=== PATIENT | male | born 1970 | race Caucasian/White ===

== ENCOUNTER 2017-03-03 07:12 | Emergency (ER) | payer SELFPAY ==
[2017-03-03] MEDS ORDERED: NORMAL SALINE 1000 ML 1,000 ML IV ONE ×2 (08:01)
[2017-03-03] MEDS ORDERED: MECLIZINE HCL 25 MG TABLET PO ONE (08:02)
[2017-03-03 08:47] LABS: ABSOLUTE BASOPHILS # (AUTO) 0.1 10^3/uL (0.0-0.2); ABSOLUTE EOSINOPHILS # (AUTO) 0.3 10^3/uL (0.0-0.6); ABSOLUTE LYMPHOCYTES (AUTO) 2.5 10^3/uL (0.5-4.7); ABSOLUTE MONOCYTES (AUTO) 0.6 10^3/uL (0.1-1.4); ABSOLUTE NEUT (AUTO) 5.4 10^3/uL (1.7-8.2); EOSINOPHILS % (AUTO) 3.1 % (0-6); HEMATOCRIT 48.7 % (37.9-51.0); HEMOGLOBIN 16.3 g/dL (13.5-17.0); HGB HCT DIFFERENCE 0.2; LYMPHOCYTES % (AUTO) 28.7 % (13-45); MEAN CORPUSCULAR HEMOGLOBIN 31.1 pg (27.0-33.4); MEAN CORPUSCULAR HGB CONC 33.4 g/dL (32.0-36.0); MEAN CORPUSCULAR VOLUME 93 fl (80-97); MONOCYTES % (AUTO) 6.4 % (3-13); RED BLOOD COUNT 5.22 10^6/uL (4.35-5.55); RED CELL DISTRIBUTION WIDTH 13.6 % (11.5-14.0); SEGMENTED NEUTROPHILS % (AUTO) 60.8 % (42-78); WHITE BLOOD COUNT 8.8 10^3/uL (4.0-10.5)
--- NOTE | 2017-03-03 08:57 | RADIOLOGY REPORT (SQ) ---
EXAM DESCRIPTION: CT HEAD WITHOUT COMPLETED DATE/TIME: 03/03/2017 8:48 am REASON FOR STUDY: dizziness COMPARISON: None. TECHNIQUE: Axial images acquired through the brain without intravenous contrast. Images reviewed wi th bone, brain and subdural windows. Images stored on PACS. All CT scanners at this facility use dose modulation, iterative reconstruction, and/or weight based d osing when appropriate to reduce radiation dose to as low as reasonably achievable (ALARA). [facility]: Dose Right [facility]: CareDose [facility]: Dose Right [facility]: Teradose 4D [facility]: [place] RADIATION DOSE: Up-to-date CT equipment and radiation dose reduction techniques were employed. CTDIv ol: 61.3 mGy. DLP: 1163 mGy-cm. mGy. LIMITATIONS: None. FINDINGS: VENTRICLES: Normal size and contour. CEREBRUM: No masses. No hemorrhage. No midline shift. Normal malone/white matter differentiation. N o evidence for acute infarction. CEREBELLUM: No masses. No hemorrhage. No alteration of density. No evidence for acute infarction. EXTRAAXIAL SPACES: No fluid collections. No masses. ORBITS AND GLOBE: No intra- or extraconal masses. Normal contour of globe without masses. CALVARIUM: No fracture. PARANASAL SINUSES: No fluid or mucosal thickening. SOFT TISSUES: No mass or hematoma. OTHER: No other significant finding. IMPRESSION: NORMAL BRAIN CT WITHOUT CONTRAST. TECHNICAL DOCUMENTATION: JOB ID: [id number] Quality ID # [id number]: Final reports with documentation of one or more dose reduction techniques (e.g., Au tomated exposure control, adjustment of the mA and/or kV according to patient size, use of iterative reconstruction technique) 2010 [employer]- All Rights Reserved
[2017-03-03 09:02] LABS: ALANINE AMINOTRANSFERASE 37 U/L (21-72); ALBUMIN 4.2 g/dL (3.5-5.0); ALKALINE PHOSPHATASE 81 U/L (38-126); ANION GAP 9 (5-19); ASPARTATE AMINO TRANSFERASE 23 U/L (17-59); BILIRUBIN,DIRECT 0.4 mg/dL (0.0-0.4); BILIRUBIN,TOTAL 0.8 mg/dL (0.2-1.3); BLOOD UREA NITROGEN 15 mg/dL (7-20); CALCIUM 9.2 mg/dL (8.4-10.2); CARBON DIOXIDE 26 mmol/L (22-30); CHLORIDE 104 mmol/L (98-107); CREATININE RESULT 0.82 mg/dL (0.52-1.25); GLUCOSE 207 mg/dL (75-110); LIPASE 69.1 U/L (23-300); MAGNESIUM 2.2 mg/dL (1.6-2.3); POTASSIUM 4.6 mmol/L (3.6-5.0); SODIUM 139.4 mmol/L (137-145); TOTAL PROTEIN 7.2 g/dL (6.3-8.2)
[2017-03-03 10:08] LABS: APPEARANCE,URINE CLEAR; BILIRUBIN,URINE NEGATIVE (NEGATIVE); GLUCOSE, URINE 150 mg/dL (NEGATIVE); KETONES,URINE NEGATIVE (NEGATIVE); LEUKOCYTE ESTERASE,URINE NEGATIVE (NEGATIVE); NITRITE,URINE NEGATIVE (NEGATIVE); PROTEIN,URINE NEGATIVE (NEGATIVE); URINE SPECIFIC GRAVITY 1.008; UROBILINOGEN,URINE NEGATIVE mg/dL (<2.0)
--- NOTE | 2017-03-03 10:24 | ER Document Report ---
ED General - General Chief Complaint: Dizziness Stated Complaint: DIZZINESS Time Seen by Provider: 03/03/17 08:00 TRAVEL OUTSIDE OF THE [place] IN LAST 30 DAYS: No - HPI Patient complains to provider of: Dizziness Notes: Patient coming in with a history of hypertension diabetes noncompliant with any medications not taking any lisinopril or metformin since August headache dizziness ongoing for the last 5 days patient dizziness is worsened when turning his head states when he was driving to the ER and to work today looking in the side view mirrors because of these need to occur. Denies any head trauma. Denies any chest pain abdominal pain denies any other fevers chills nausea vomiting - Related Data Allergies/Adverse Reactions: neomycin Allergy (Verified 03/03/17 07:23) Past Medical History - Social History Smoking Status: Unknown if Ever Smoked Family History: Reviewed & Not Pertinent Patient has suicidal ideation: No Patient has homicidal ideation: No - Past Medical History Cardiac Medical History: Reports: Hx Hypertension Renal/ Medical History: Denies: Hx Peritoneal Dialysis Review of Systems - Review of Systems Constitutional: Other - Dizziness EENT: No symptoms reported Cardiovascular: No symptoms reported Respiratory: No symptoms reported Gastrointestinal: No symptoms reported Genitourinary: No symptoms reported Male Genitourinary: No symptoms reported Musculoskeletal: No symptoms reported Skin: No symptoms reported Hematologic/Lymphatic: No symptoms reported Neurological/Psychological: No symptoms reported -: Yes All other systems reviewed and negative Physical Exam - Vital signs Vitals: Temp Pulse Resp BP Pulse Ox 98.0 F 82 18 170/97 H 99 03/03/17 07:24 03/03/17 07:24 03/03/17 07:24 03/03/17 07:24 03/03/17 07:24 Interpretation: Normal - General General appearance: Appears well, Alert - HEENT Head: Normocephalic, Atraumatic Eyes: Normal Pupils: PERRL - Respiratory Respiratory status: No respiratory distress Chest status: Nontender Breath sounds: Normal Chest palpation: Normal - Cardiovascular Rhythm: Regular Heart sounds: Normal auscultation Murmur: No - Abdominal Inspection: Normal Distension: No distension Bowel sounds: Normal Tenderness: Nontender Organomegaly: No organomegaly - Back Back: Normal, Nontender - Extremities General upper extremity: Normal inspection, Nontender, Normal color, Normal ROM , Normal temperature General lower extremity: Normal inspection, Nontender, Normal color, Normal ROM , Normal temperature, Normal weight bearing. No: Alfredo's sign - Neurological Neuro grossly intact: Yes Cognition: Normal Orientation: AAOx4 Michelle Coma Scale Eye Opening: Spontaneous Michelle Coma Scale Verbal: Oriented Michelle Coma Scale Motor: Obeys Commands Michelle Coma Scale Total: 15 Speech: Normal Motor strength normal: LUE, RUE, LLE, RLE Sensory: Normal - Psychological Associated symptoms: Normal affect, Normal mood - Skin Skin Temperature: Warm Skin Moisture: Dry Skin Color: Normal Course - Re-evaluation Re-evalutation: 03/03/17 13:48 Started patient on metformin lisinopril. No clinical signs of the patient dizziness. Patient will be treated with Valium Blanca maneuver instructions were given to the patient. Patient is understanding will be discharged home - Vital Signs Vital signs: Temp Pulse Resp BP Pulse Ox 97.6 F 59 L 17 173/85 H 98 03/03/17 10:30 03/03/17 10:30 03/03/17 10:30 03/03/17 10:30 03/03/17 10:30 - Laboratory Result Diagrams: 03/03/17 08:18 03/03/17 08:18 Laboratory results interpreted by me: 03/03/17 03/03/17 08:18 09:53 Glucose 207 H Urine Glucose (UA) 150 H Discharge - Discharge Clinical Impression: Dizziness Hypertension Qualifiers: Hypertension type: essential hypertension Qualified Code(s): I10 - Essential ( primary) hypertension Condition: Good Disposition: HOME, SELF-CARE Instructions: Dizziness ([facility]), Vertigo ([facility]) Additional Instructions: Your laboratory studies and CAT scan did not reveal any significant pathology. Your blood sugar is elevated. We will restart you on your blood pressure medications and diabetic medication. Your dizziness is more likely related to vertigo which can be an due to inner ear dysfunction. Most the time treatment will involve medication like Valium and also a procedure called the Blanca maneuver. Please refer to the handout to perform the Blanca maneuver at home. He may have to do this 2 or 3 times and may have to do multiple times a day. Would recommend also drinking plenty water to stay hydrated follow-up with your primary care physician Prescriptions: Diazepam [Valium 2 mg Tablet] 2 mg PO Q6HP PRN #30 tablet PRN Reason: Lisinopril 20 mg PO DAILY #30 tablet Metformin HCl 500 mg PO BID #60 tablet
[2017-03-03 10:41] VITALS: BP 173/85
--- NOTE | 2017-03-03 13:11 | EKG REPORT ---
SEVERITY:- NORMAL ECG - SINUS RHYTHM : Confirmed by: Nikolai Moss MD 03-Mar-2017 13:10:53
== END 2017-03-03 10:42 | disposition home or self-care (01) ==
LOC: ER 07:12
DX: I10 Essential (primary) hypertension (principal); T46.4X6A Underdosing of angiotensin-converting-enzyme inhibitors, initial encounter; E11.9 Type 2 diabetes mellitus without complications; T38.3X6A Underdosing of insulin and oral hypoglycemic [antidiabetic] drugs, initial encounter; Z91.14 Patient's other noncompliance with medication regimen; R42 Dizziness and giddiness; R51 Headache; Z88.1 Allergy status to other antibiotic agents
CPT/HCPCS: 93005; 99284; 36415; 83690; 83735; 85025; 80053; 81001; 70450; 93010; J7030

== ENCOUNTER 2017-07-26 12:07 | Emergency (ER) | payer SELFPAY ==
[2017-07-26] MEDS ORDERED: ONDANSETRON HCL INJ/PF 4 MG/2 ML SDV IV ONE (13:55)
[2017-07-26] MEDS ORDERED: MORPHINE SULFATE 10 MG/ML INJ IV ONE ×2 (13:55→17:13)
--- NOTE | 2017-07-26 13:56 | ER Document Report ---
ED Medical Screen (RME) - General Chief Complaint: Facial Swelling Stated Complaint: FACE SWELLING Time Seen by Provider: 07/26/17 13:49 Mode of Arrival: Ambulatory Information source: Patient Notes: Complaint of facial swelling sudden onset this morning . Now severe left sided facial pain and eye pain. Smokes and has IDDM and HTN. Bad teeth but no tooth ache today. TRAVEL OUTSIDE OF THE [place] IN LAST 30 DAYS: No - HPI Onset: This morning - Related Data Allergies/Adverse Reactions: neomycin Allergy (Verified 07/26/17 12:08) Past Medical History - Past Medical History Cardiac Medical History: Reports: Hx Hypertension Renal/ Medical History: Denies: Hx Peritoneal Dialysis Physical Exam - Vital signs Vitals: Temp Pulse Resp BP Pulse Ox 98.5 F 94 18 188/104 H 99 07/26/17 12:12 07/26/17 12:12 07/26/17 12:12 07/26/17 12:12 07/26/17 12:12 - HEENT Head: Normocephalic, Ecchymosis, Tenderness, Other - Right side facial swelling with concern for eye involvement. Very tender to palpation. Conjunctiva: Injected Extraocular movements intact: Yes Course - Vital Signs Vital signs: Temp Pulse Resp BP Pulse Ox 98.5 F 94 18 188/104 H 99 07/26/17 12:12 07/26/17 12:12 07/26/17 12:12 07/26/17 12:12 07/26/17 12:12 - Transfer of Care Notes: 07/26/17 13:58 I have seen and evaluated patient inorder to start process and get patient started. Another Provider will handle furtgher evaluation and disposition Doctor's Discharge - Discharge Clinical Impression: Dental abscess
[2017-07-26 15:02] LABS: ABSOLUTE BASOPHILS # (AUTO) 0.1 10^3/uL (0.0-0.2); ABSOLUTE EOSINOPHILS # (AUTO) 0.1 10^3/uL (0.0-0.6); ABSOLUTE LYMPHOCYTES (AUTO) 2.2 10^3/uL (0.5-4.7); ABSOLUTE NEUT (AUTO) 10.3 10^3/uL (1.7-8.2); BASOPHILS % (AUTO) 0.7 % (0-2); EOSINOPHILS % (AUTO) 0.9 % (0-6); HEMATOCRIT 46.7 % (37.9-51.0); HEMOGLOBIN 16.1 g/dL (13.5-17.0); HGB HCT DIFFERENCE 1.6; LYMPHOCYTES % (AUTO) 15.9 % (13-45); MEAN CORPUSCULAR HEMOGLOBIN 32.3 pg (27.0-33.4); MEAN CORPUSCULAR HGB CONC 34.4 g/dL (32.0-36.0); MEAN CORPUSCULAR VOLUME 94 fl (80-97); MONOCYTES % (AUTO) 7.1 % (3-13); RED BLOOD COUNT 4.97 10^6/uL (4.35-5.55); RED CELL DISTRIBUTION WIDTH 12.9 % (11.5-14.0); SEGMENTED NEUTROPHILS % (AUTO) 75.4 % (42-78); WHITE BLOOD COUNT 13.7 10^3/uL (4.0-10.5)
[2017-07-26] MEDS ORDERED: AMOXICILLIN TR/POT CLAVULANATE 500-125 MG TAB PO ONE (15:07)
[2017-07-26] MEDS ORDERED: HYDROCODONE/ACETAMINOPHEN 5-325 MG TABLET PO ONE (15:08)
--- NOTE | 2017-07-26 15:10 | ER Document Report ---
ED ENT - General Chief Complaint: Facial Swelling Stated Complaint: FACE SWELLING Time Seen by Provider: 07/26/17 13:49 Mode of Arrival: Ambulatory Information source: Patient Notes: 46-year-old male presents to ED for complaint of facial swelling was sudden onset this morning with severe that his facial swelling up to the eyes with pressure on his eye. He states he smokes and has a history of diabetes and high blood pressure. He has a bad tooth in the right upper jaw but he has no tenderness when this is palpated. He states he does not think it has anything to do with the tooth. He states he did have a upper respiratory infection before this started. TRAVEL OUTSIDE OF THE [place] IN LAST 30 DAYS: No - HPI Patient complains to provider of: Nose problem Onset: This morning Onset/Duration: Gradual, Worse Quality of pain: Achy Severity: Moderate Context: Recent Illness Location of pain: Face, Sinus Associated symptoms: Face swelling, Headache, Sinus pain, Other - Pressure to eye on the right Similar symptoms previously: No Recently seen / treated by doctor: No - Related Data Allergies/Adverse Reactions: neomycin Allergy (Verified 07/26/17 12:08) Past Medical History - General Information source: Patient - Social History Smoking Status: Current Every Day Smoker Cigarette use (# per day): Yes - 1/2 ppd Chew tobacco use (# tins/day): No Smoking Education Provided: Yes - less than 1 min Frequency of alcohol use: Heavy - 1-2 daily Drug Abuse: None Occupation: [employer] Lives with: Family Family History: DM, Hyperlipidemia, Hypertension, Malignancy. denies: Arthritis , CAD, COPD, CVA, Thyroid Disfunction Patient has suicidal ideation: No Patient has homicidal ideation: No - Past Medical History Cardiac Medical History: Reports: Hx Hypertension Pulmonary Medical History: Reports: None EENT Medical History: Reports: None Endocrine Medical History: Reports: Hx Diabetes Mellitus Type 2 Renal/ Medical History: Reports: Hx Kidney Stones Malignancy Medical History: Reports None GI Medical History: Reports: None Musculoskeltal Medical History: Reports Hx Arthritis, Reports Hx Musculoskeletal Deformity, Reports Hx Musculoskeletal Trauma Skin Medical History: Reports None Psychiatric Medical History: Reports: None Traumatic Medical History: Reports: Hx Fractures Infectious Medical History: Reports: None Past Surgical History: Reports: Hx Inguinal Hernia, Hx Kidney (Renal Surgery) - 7 lithotripsies 1 laser surgery 6 stents to the kidneys for stones - Immunizations Immunizations up to date: Yes Review of Systems - Review of Systems Constitutional: Recent illness EENT: Sinus pressure, Mouth swelling - Upper lip swollen bottom lip not swollen , Dental problem - Cavity upper jaw but no tenderness to this area, Other - Right facial swelling up to just below the eyes states he has pressure behind eyes upper lip swollen. denies: Throat pain, Difficulty swallowing, Throat swelling, Mouth pain Cardiovascular: No symptoms reported Respiratory: No symptoms reported Gastrointestinal: No symptoms reported Genitourinary: No symptoms reported Male Genitourinary: No symptoms reported Musculoskeletal: No symptoms reported Skin: No symptoms reported Hematologic/Lymphatic: No symptoms reported Neurological/Psychological: No symptoms reported -: Yes All other systems reviewed and negative Physical Exam - Vital signs Vitals: Temp Pulse Resp BP Pulse Ox 98.5 F 94 18 188/104 H 99 07/26/17 12:12 07/26/17 12:12 07/26/17 12:12 07/26/17 12:12 07/26/17 12:12 Interpretation: Normal - General General appearance: Appears well, Alert - HEENT Head: Normocephalic, Atraumatic Eyes: Normal, Other - Pressure behind the eye. No: Pale conjunctiva, Periorbital ecchymosis, Periorbital edema, Scleral icterus Conjunctiva: Normal Cornea: Normal Extraocular movements intact: Yes Eyelashes: Normal Pupils: PERRL Ears: Normal External canal: Normal Tympanic membrane: Normal Sinus: Frontal, Mastoid, Maxillary, Swelling, Tenderness. No: Redness Nasal: Purulent discharge, Swelling Mouth/Lips: Caries - Tooth #7 very decayed put most of the tooth call, Other - Right upper lip swelling Mucous membranes: Normal Pharynx: Normal Neck: Normal - Respiratory Respiratory status: No respiratory distress Chest status: Nontender Breath sounds: Normal Chest palpation: Normal - Cardiovascular Rhythm: Regular Heart sounds: Normal auscultation Murmur: No - Abdominal Inspection: Normal Distension: No distension Bowel sounds: Normal Tenderness: Nontender Organomegaly: No organomegaly - Back Back: Normal, Nontender - Extremities General upper extremity: Normal inspection, Nontender, Normal color, Normal ROM , Normal temperature General lower extremity: Normal inspection, Nontender, Normal color, Normal ROM , Normal temperature, Normal weight bearing. No: Alfredo's sign - Neurological Neuro grossly intact: Yes Cognition: Normal Orientation: AAOx4 Mcintyre Coma Scale Eye Opening: Spontaneous Mcintyre Coma Scale Verbal: Oriented Michelle Coma Scale Motor: Obeys Commands Mcintyre Coma Scale Total: 15 Speech: Normal Motor strength normal: LUE, RUE, LLE, RLE Sensory: Normal - Psychological Associated symptoms: Normal affect, Normal mood - Skin Skin Temperature: Warm Skin Moisture: Dry Skin Color: Normal Course - Re-evaluation Re-evalutation: 07/26/17 17:[address] Yadav facial pain and swelling with pressure behind the eye. Consulted Dr Yadav again due to the increase in pain and swelling to his face. We will add another morphine injection as well as clindamycin IV. - Vital Signs Vital signs: Temp Pulse Resp BP Pulse Ox 100.2 F 97 18 164/95 H 94 07/26/17 18:51 07/26/17 18:51 07/26/17 12:12 07/26/17 18:51 07/26/17 18:51 - Laboratory Result Diagrams: 07/26/17 14:50 07/26/17 14:50 Laboratory results interpreted by me: 07/26/17 07/26/17 14:50 14:50 WBC 13.7 H Absolute Neutrophils 10.3 H Glucose 152 H Direct Bilirubin 0.5 H Total Protein 8.5 H - Diagnostic Test Radiology reviewed: Image reviewed, Reports reviewed Discharge - Discharge Clinical Impression: Right maxillary sinusitis Condition: Stable Disposition: HOME, SELF-CARE Instructions: Family Physicians / Practices Additional Instructions: Sinusitis You have sinusitis, an infection of the sinus cavities of the face. The sinuses are air-filled chambers which open into the inside of the nose. Bacteria and pus fill a sinus, causing pain, drainage, and fever. Sinusitis is treated with antibiotics. Often, expectorants (to thin the sinus mucous) or decongestants (to reduce swelling) are prescribed as well. Healing requires seven to 10 days. Avoid chemical fumes, pollens, dusts, and smoke (especially cigarette smoke ). Keep the air humidified in your bedroom and work area and take plenty of liquids by mouth. This condition can be serious if the infection spreads. If your symptoms worsen, or if you develop severe headache, high fever, stiff neck, or a rash, you must call the doctor or return for re-evaluation. Clindamycin You have been given a prescription for the antibiotic clindamycin. It is often prescribed for infections in the mouth, such as dental infections or abscesses, and for skin infections due to MRSA. It's important that you take all the medication, unless instructed otherwise by your physician. Failure to complete the entire course can result in relapse of your condition. Common side effects of antibiotics include nausea, intestinal cramping, or diarrhea. Women may develop vaginal yeast infections, and babies can get yeast (thrush) in the mouth following the use of antibiotics. Contact your physician if you develop significant side effects from this medication. Allergy to this antibiotic can result in hives, wheezing, faintness, or itching. If symptoms of allergy occur, stop the medication and call the doctor. Oral Narcotic Medication You have been given a prescription for pain control. This medication is a narcotic. It's best taken with food, as nausea can result if taken on an empty stomach. Don't operate machinery or drive within six hours of taking this medication. Do not combine this medicine with alcohol, or with any medication which can cause sedation (such as cold tablets or sleeping pills) unless you get permission from the physician. Narcotics tend to cause constipation. If possible, drink plenty of fluids and eat a diet high in fiber and fruits. You prescription for clindamycin has been called into [facility] on [address]. This prescription will be ready for you. FOLLOW-UP CARE: If you have been referred to a physician for follow-up care, call the physician s office for an appointment as you were instructed or within the next two days. If you experience worsening or a significant change in your symptoms, notify the physician immediately or return to the Emergency Department at any time for re-evaluation. As you stated that you do not have insurance to follow-up please return to the emergency room in 48 hours to ensure that her symptoms are improving. Return sooner if you have any increase in swelling any difficulty swallowing or any difficulty breathing. Prescriptions: Hydrocodone/Acetaminophen [[place] 5-325 mg Tablet] 1 tab PO Q6HP PRN #14 tablet PRN Reason: Forms: Elevated Blood Pressure, Smoking Cessation Education, Return to Work
[2017-07-26] MEDS ORDERED: LISINOPRIL 10 MG TABLET PO ONE (15:15)
[2017-07-26 15:32] LABS: ALANINE AMINOTRANSFERASE 34 U/L (21-72); ALBUMIN 4.8 g/dL (3.5-5.0); ALKALINE PHOSPHATASE 101 U/L (38-126); ANION GAP 12 (5-19); ASPARTATE AMINO TRANSFERASE 20 U/L (17-59); BILIRUBIN,DIRECT 0.5 mg/dL (0.0-0.4); BILIRUBIN,TOTAL 0.9 mg/dL (0.2-1.3); BLOOD UREA NITROGEN 9 mg/dL (7-20); CALCIUM 9.6 mg/dL (8.4-10.2); CARBON DIOXIDE 30 mmol/L (22-30); CHLORIDE 99 mmol/L (98-107); CREATININE RESULT 0.84 mg/dL (0.52-1.25); GLUCOSE 152 mg/dL (75-110); POTASSIUM 3.8 mmol/L (3.6-5.0); SODIUM 140.7 mmol/L (137-145); TOTAL PROTEIN 8.5 g/dL (6.3-8.2)
--- NOTE | 2017-07-26 16:26 | RADIOLOGY REPORT (SQ) ---
EXAM DESCRIPTION: CT FACIAL AREA WITH COMPLETED DATE/TIME: 07/26/2017 4:05 pm REASON FOR STUDY: right facial swelling / Need IV contrast only COMPARISON: None. TECHNIQUE: Post contrast images through the facial bones and orbits windowed for bone and soft tissu e. Additional coronal and sagittal reconstructed images reviewed. All images stored on PACS. All CT scanners at this facility use dose modulation, iterative reconstruction, and/or weight based d osing when appropriate to reduce radiation dose to as low as reasonably achievable (ALARA). [facility]: Dose Right [facility]: CareDose [facility]: Dose Right [facility]: Teradose 4D [facility]: [place] CONTRAST TYPE AND DOSE: 55 mL Isovue 370- low osmolar. RENAL FUNCTION: None required. The patient is less than 50 years old. RADIATION DOSE: . LIMITATIONS: None. FINDINGS: FACIAL BONES: No fracture or bone lesion. ORBITS: Intact. No fracture. Symmetric intact globes and retroorbital soft tissues. PARANASAL SINUSES: Mild mucosal thickening is identified in the right maxillary antra and a few of th e ethmoidal air cells. No nasal polyps. Maxillary sinus outlets are patent. SOFT TISSUES: There is superficial soft tissue swelling in the right maxillary region with edematous or inflammatory changes in the subcutaneous fat and some thickening of the adjacent fascial planes. No discrete fluid collection is identified. INFERIOR BRAIN: Limited view. No acute findings. OTHER: There are some prominent submandibular lymph nodes on the right. IMPRESSION: Findings most consistent with a cellulitis involving the superficial soft tissues in the right maxillary region as noted above. No discrete fluid collection is identified. Other findings as noted above TECHNICAL DOCUMENTATION: JOB ID: [id number] Quality ID # [id number]: Final reports with documentation of one or more dose reduction techniques (e.g., Au tomated exposure control, adjustment of the mA and/or kV according to patient size, use of iterative reconstruction technique) 2010 [email or web address]- All Rights Reserved
[2017-07-26] MEDS ORDERED: CLINDAMYCIN 900 MG/D5W RTU 50 ML IV ONE (17:13)
[2017-07-26 18:52] VITALS: BP 164/95
== END 2017-07-26 19:18 | disposition home or self-care (01) ==
LOC: ER 12:07
DX: J32.0 Chronic maxillary sinusitis (principal); R22.0 Localized swelling, mass and lump, head; F17.210 Nicotine dependence, cigarettes, uncomplicated; I10 Essential (primary) hypertension; E11.9 Type 2 diabetes mellitus without complications; Z88.3 Allergy status to other anti-infective agents; Z87.442 Personal history of urinary calculi
CPT/HCPCS: 96376; 99284; 96374; 96375; 36415; 85025; 80053; 70487; J2270; J2405

== ENCOUNTER 2017-09-16 07:06 | Emergency (ER) | payer SELFPAY ==
--- NOTE | 2017-09-16 08:23 | ER Document Report ---
ED GI/ - General Chief Complaint: Possible Kidney Stone Stated Complaint: FLANK PAIN Time Seen by Provider: 09/16/17 08:20 Mode of Arrival: Ambulatory Information source: Patient Notes: . TRAVEL OUTSIDE OF THE [place] IN LAST 30 DAYS: No - Related Data Allergies/Adverse Reactions: neomycin Allergy (Verified 07/26/17 12:08) Past Medical History - Social History Family History: DM, Hyperlipidemia, Hypertension, Malignancy. denies: Arthritis , CAD, COPD, CVA, Thyroid Disfunction - Past Medical History Cardiac Medical History: Reports: Hx Hypertension Endocrine Medical History: Reports: Hx Diabetes Mellitus Type 2 Renal/ Medical History: Reports: Hx Kidney Stones. Denies: Hx Peritoneal Dialysis Musculoskeltal Medical History: Reports Hx Arthritis, Reports Hx Musculoskeletal Deformity, Reports Hx Musculoskeletal Trauma Traumatic Medical History: Reports: Hx Fractures Past Surgical History: Reports: Hx Inguinal Hernia, Hx Kidney (Renal Surgery) - 7 lithotripsies 1 laser surgery 6 stents to the kidneys for stones - Immunizations Immunizations up to date: Yes Physical Exam - Vital signs Vitals: Temp Pulse Resp BP Pulse Ox 98.3 F 88 18 163/90 H 99 09/16/17 07:30 09/16/17 07:30 09/16/17 07:30 09/16/17 07:30 09/16/17 07:30 Course - Vital Signs Vital signs: Temp Pulse Resp BP Pulse Ox 97.8 F 74 16 172/108 H 100 09/16/17 12:31 09/16/17 12:31 09/16/17 12:31 09/16/17 12:31 09/16/17 12:31 - Laboratory Result Diagrams: 09/16/17 11:10 09/16/17 11:10 Laboratory results interpreted by me: 09/16/17 09/16/17 10:00 11:10 Glucose 150 H Urine Glucose (UA) 50 H Discharge - Discharge Clinical Impression: Flank pain, Nephrolithiasis Condition: Stable Disposition: HOME, SELF-CARE Instructions: Anti-Inflammatory Medication ([facility]), Flank Pain ([facility]), Oral Narcotic Medication ([facility]), Toradol Injection ([facility]) Additional Instructions: REST, AVOID PAINFUL ACTIVITY. TAKE IBUPROFEN OR NAPROXEN TO REDUCE INFLAMMATION. YOU MAY TAKE NORCO IF NEEDED FOR PAIN CONTROL. FOLLOW UP IF NOT IMPROVED IN 2-3 DAYS. Prescriptions: Hydrocodone/Acetaminophen [[place] 5-325 mg Tablet] 1 tab PO Q4HP PRN #14 tablet PRN Reason: For Pain
[2017-09-16] MEDS ORDERED: IBUPROFEN 800 MG TABLET PO ONE (08:26)
[2017-09-16] MEDS ORDERED: ACETAMINOPHEN 325 MG TABLET PO ONE (08:26)
--- NOTE | 2017-09-16 09:05 | RADIOLOGY REPORT (SQ) ---
EXAM DESCRIPTION: CT LTD RENAL STONE PROTOCOL ON COMPLETED DATE/TIME: 09/16/2017 8:42 am REASON FOR STUDY: right flank pain, hx stones COMPARISON: None. TECHNIQUE: CT scan of the abdomen and pelvis performed without intravenous or oral contrast. Images reviewed with lung, soft tissue, and bone windows. Reconstructed coronal and sagittal MPR images revi ewed. All images stored on PACS. All CT scanners at this facility use dose modulation, iterative reconstruction, and/or weight based d osing when appropriate to reduce radiation dose to as low as reasonably achievable (ALARA). [facility]: Dose Right [facility]: CareDose [facility]: Dose Right [facility]: Teradose 4D [facility]: Smart RealityMine RADIATION DOSE: CT Rad equipment meets quality standard of care and radiation dose reduction techniq ues were employed. CTDIvol: 18.8 mGy. DLP: 1091 mGy-cm.mGy. LIMITATIONS: None. FINDINGS: LOWER CHEST: No significant findings. No nodules or infiltrates. NON-CONTRASTED LIVER, SPLEEN, ADRENALS: Evaluation limited by lack of IV contrast. Calcified granulo ma in the spleen. No identified significant masses. PANCREAS: No masses. No peripancreatic inflammatory changes. GALLBLADDER: No identified stones by CT criteria. No inflammatory changes to suggest cholecystitis. RIGHT KIDNEY AND URETER: No suspicious masses. Assessment limited by lack of IV contrast. No signif icant calcifications. No hydronephrosis or hydroureter. LEFT KIDNEY AND URETER: No suspicious masses. Assessment limited by lack of IV contrast. 2 mm calyc eal calculus. No hydronephrosis or hydroureter. AORTA AND RETROPERITONEUM: No aneurysm. No retroperitoneal masses or adenopathy. BOWEL AND PERITONEAL CAVITY: No obvious masses or inflammatory changes. No free fluid. APPENDIX: Normal. PELVIS, BLADDER, AND ABDOMINAL WALL:Left inguinal hernia containing fat. No involvement of bowel. N o abnormal masses. No free fluid. Bladder normal. BONES: No significant findings. OTHER: No other significant finding. IMPRESSION: 1. 2 MM NONOBSTRUCTING CALYCEAL CALCULUS IN THE LEFT KIDNEY. NO URETERAL CALCULI OR OBSTRUCTION. 2. LEFT INGUINAL HERNIA CONTAINING FAT. NO INVOLVEMENT OF BOWEL. 3. NO OTHER SIGNIFICANT OR ACUTE PROCESS IN THE ABDOMEN OR PELVIS. COMMENT: Quality ID # [id number]: Final reports with documentation of one or more dose reduction techniques (e.g., Automated exposure control, adjustment of the mA and/or kV according to patient size, use of iterative reconstruction technique) TECHNICAL DOCUMENTATION: JOB ID: [id number] [employer]- All Rights Reserved
[2017-09-16 10:44] LABS: APPEARANCE,URINE CLEAR; BILIRUBIN,URINE NEGATIVE (NEGATIVE); COLOR,URINE STRAW; GLUCOSE, URINE 50 mg/dL (NEGATIVE); KETONES,URINE NEGATIVE (NEGATIVE); LEUKOCYTE ESTERASE,URINE NEGATIVE (NEGATIVE); NITRITE,URINE NEGATIVE (NEGATIVE); PROTEIN,URINE NEGATIVE (NEGATIVE); URINE SPECIFIC GRAVITY 1.005; UROBILINOGEN,URINE NEGATIVE mg/dL (<2.0)
[2017-09-16 11:19] LABS: ABSOLUTE EOSINOPHILS # (AUTO) 0.5 10^3/uL (0.0-0.6); ABSOLUTE LYMPHOCYTES (AUTO) 2.9 10^3/uL (0.5-4.7); ABSOLUTE MONOCYTES (AUTO) 0.5 10^3/uL (0.1-1.4); ABSOLUTE NEUT (AUTO) 5.3 10^3/uL (1.7-8.2); BASOPHILS % (AUTO) 0.1 % (0-2); EOSINOPHILS % (AUTO) 4.9 % (0-6); HEMATOCRIT 45.7 % (37.9-51.0); HEMOGLOBIN 15.9 g/dL (13.5-17.0); MEAN CORPUSCULAR HEMOGLOBIN 32.6 pg (27.0-33.4); MEAN CORPUSCULAR HGB CONC 34.9 g/dL (32.0-36.0); MEAN CORPUSCULAR VOLUME 94 fl (80-97); MONOCYTES % (AUTO) 5.2 % (3-13); PLATELET COUNT 225 10^3/uL (150-450); RED BLOOD COUNT 4.88 10^6/uL (4.35-5.55); RED CELL DISTRIBUTION WIDTH 12.8 % (11.5-14.0); SEGMENTED NEUTROPHILS % (AUTO) 57.8 % (42-78); TOTAL CELLS COUNTED % (AUTO) 100 %; WHITE BLOOD COUNT 9.2 10^3/uL (4.0-10.5)
--- NOTE | 2017-09-16 11:28 | ER Document Report ---
ED GI/ - General Chief Complaint: Possible Kidney Stone Stated Complaint: FLANK PAIN Time Seen by Provider: 09/16/17 08:20 Mode of Arrival: Ambulatory Information source: Patient TRAVEL OUTSIDE OF THE [place] IN LAST 30 DAYS: No - HPI Patient complains to provider of: Flank pain - RIGHT Onset: Other - 2 WEEKS Timing/Duration: Gradual Quality of pain: Dull Severity at maximum: Severe Severity in ED: Moderate Context: denies: Bad food, Lifting, Out of the country travel, Recent trauma Location: Right flank Associated symptoms: Nausea. denies: Chills, Dysuria, Fever, Hematuria, Vomiting Exacerbated by: Movement Relieved by: Remaining still Similar symptoms previously: Yes - SIMILAR, W/ "KIDNEY STONES" Recently seen / treated by doctor: No - Related Data Allergies/Adverse Reactions: neomycin Allergy (Verified 07/26/17 12:08) Past Medical History - General Information source: Patient - Social History Smoking Status: Current Every Day Smoker Chew tobacco use (# tins/day): No Frequency of alcohol use: None Drug Abuse: None Family History: DM, Hyperlipidemia, Hypertension, Malignancy. denies: Arthritis , CAD, COPD, CVA, Thyroid Disfunction Patient has suicidal ideation: No Patient has homicidal ideation: No - Past Medical History Cardiac Medical History: Reports: Hx Hypertension Pulmonary Medical History: Reports: None EENT Medical History: Reports: None Neurological Medical History: Reports: None Endocrine Medical History: Reports: Hx Diabetes Mellitus Type 2 Renal/ Medical History: Reports: Hx Kidney Stones. Denies: Hx Peritoneal Dialysis Malignancy Medical History: Reports None GI Medical History: Reports: None Musculoskeltal Medical History: Reports Hx Arthritis, Reports Hx Musculoskeletal Deformity, Reports Hx Musculoskeletal Trauma Psychiatric Medical History: Reports: None Traumatic Medical History: Reports: Hx Fractures Past Surgical History: Reports: Hx Inguinal Hernia, Hx Kidney (Renal Surgery) - 7 lithotripsies 1 laser surgery 6 stents to the kidneys for stones - Immunizations Immunizations up to date: Yes Review of Systems - Review of Systems Constitutional: No symptoms reported. denies: Chills, Fever EENT: No symptoms reported Cardiovascular: No symptoms reported Respiratory: No symptoms reported Gastrointestinal: No symptoms reported Genitourinary: See HPI Male Genitourinary: No symptoms reported Musculoskeletal: See HPI Skin: No symptoms reported Neurological/Psychological: No symptoms reported Physical Exam - Vital signs Vitals: Temp Pulse Resp BP Pulse Ox 98.3 F 88 18 163/90 H 99 09/16/17 07:30 09/16/17 07:30 09/16/17 07:30 09/16/17 07:30 09/16/17 07:30 Interpretation: Hypertensive. No: Tachycardic, Tachypneic, Febrile - General General appearance: Appears well, Alert In distress: None - HEENT Head: Normocephalic Eyes: Normal Conjunctiva: Normal Ears: Normal Nasal: Normal Mouth/Lips: Normal Mucous membranes: Normal - Respiratory Respiratory status: No respiratory distress - Cardiovascular Rhythm: Regular - Abdominal Inspection: Obese - Back Back: Normal, Nontender - NO SUPERFICIAL TENDERNESS, CVA tenderness - TO PERCUSSION, RIGHT - Extremities General upper extremity: Normal inspection General lower extremity: Normal inspection - Neurological Neuro grossly intact: Yes Cognition: Normal Orientation: AAOx4 - Psychological Associated symptoms: Normal affect, Normal mood - Skin Skin Temperature: Warm Skin Moisture: Dry Skin Color: Normal Skin Turgor: Elastic Course - Vital Signs Vital signs: Temp Pulse Resp BP Pulse Ox 98.3 F 88 18 163/90 H 99 09/16/17 07:30 09/16/17 07:30 09/16/17 07:30 09/16/17 07:30 09/16/17 07:30 - Laboratory Result Diagrams: 09/16/17 11:10 09/16/17 11:10 Laboratory results interpreted by me: 09/16/17 09/16/17 10:00 11:10 Glucose 150 H Urine Glucose (UA) 50 H Discharge - Discharge Clinical Impression: Flank pain, Nephrolithiasis Condition: Stable Disposition: HOME, SELF-CARE Instructions: Flank Pain ([facility]), Toradol Injection ([facility]), Oral Narcotic Medication ([facility]), Anti-Inflammatory Medication ([facility]) Additional Instructions: REST, AVOID PAINFUL ACTIVITY. TAKE IBUPROFEN OR NAPROXEN TO REDUCE INFLAMMATION. YOU MAY TAKE NORCO IF NEEDED FOR PAIN CONTROL. FOLLOW UP IF NOT IMPROVED IN 2-3 DAYS. Prescriptions: Hydrocodone/Acetaminophen [[place] 5-325 mg Tablet] 1 tab PO Q4HP PRN #14 tablet PRN Reason: For Pain
[2017-09-16] MEDS ORDERED: KETOROLAC TROMETHAMINE INJ/PF 30 MG/1 ML SDV IV ONE (11:32)
[2017-09-16 11:40] LABS: ALANINE AMINOTRANSFERASE 52 U/L (21-72); ALBUMIN 4.5 g/dL (3.5-5.0); ALKALINE PHOSPHATASE 80 U/L (38-126); ANION GAP 8 (5-19); ASPARTATE AMINO TRANSFERASE 28 U/L (17-59); BILIRUBIN,DIRECT 0.3 mg/dL (0.0-0.4); BILIRUBIN,TOTAL 0.6 mg/dL (0.2-1.3); BLOOD UREA NITROGEN 12 mg/dL (7-20); CALCIUM 9.7 mg/dL (8.4-10.2); CARBON DIOXIDE 28 mmol/L (22-30); CHLORIDE 105 mmol/L (98-107); GLUCOSE 150 mg/dL (75-110); POTASSIUM 4.8 mmol/L (3.6-5.0); SODIUM 141.2 mmol/L (137-145); TOTAL PROTEIN 7.4 g/dL (6.3-8.2)
[2017-09-16 12:32] VITALS: BP 172/108
--- NOTE | 2017-09-17 06:53 | ER Document Report ---
ED Medical Screen (RME) - General Chief Complaint: Possible Kidney Stone Stated Complaint: FLANK PAIN Time Seen by Provider: 09/16/17 08:20 Mode of Arrival: Ambulatory Notes: 47 yo htn, hx multiple stones (lithotrypsy and stents), hernia surgery, insulin DM (no rx for 1 month) male c/o RUQ similar to where he normally has stone pain that radiates into right low back for 2 weeks. 4/5. Worse if on right side and try to roll over or get up, it then feels like something ripping in right flank. Occaional will have some middle right abdominal pain but not all the way into groin. No fever or chlils. No dysuria, hesitancy or hematuria. Nausea and vomit yesterday. No diarrhea. No sciatica. allergic neomycin. No PCP TRAVEL OUTSIDE OF THE [place] IN LAST 30 DAYS: No - Related Data Allergies/Adverse Reactions: neomycin Allergy (Verified 07/26/17 12:08) Past Medical History - Social History Chew tobacco use (# tins/day): No Frequency of alcohol use: None Drug Abuse: None - Past Medical History Cardiac Medical History: Reports: Hx Hypertension Pulmonary Medical History: Reports: None EENT Medical History: Reports: None Neurological Medical History: Reports: None Endocrine Medical History: Reports: Hx Diabetes Mellitus Type 2 Renal/ Medical History: Reports: Hx Kidney Stones. Denies: Hx Peritoneal Dialysis Malignancy Medical History: Reports None GI Medical History: Reports: None Musculoskeltal Medical History: Reports Hx Arthritis, Reports Hx Musculoskeletal Deformity, Reports Hx Musculoskeletal Trauma Psychiatric Medical History: Reports: None Traumatic Medical History: Reports: Hx Fractures Past Surgical History: Reports: Hx Inguinal Hernia, Hx Kidney (Renal Surgery) - 7 lithotripsies 1 laser surgery 6 stents to the kidneys for stones - Immunizations Immunizations up to date: Yes Physical Exam - Vital signs Vitals: Temp Pulse Resp BP Pulse Ox 98.3 F 88 18 163/90 H 99 09/16/17 07:30 09/16/17 07:30 09/16/17 07:30 09/16/17 07:30 09/16/17 07:30 Course - Vital Signs Vital signs: Temp Pulse Resp BP Pulse Ox 97.8 F 74 16 172/108 H 100 09/16/17 12:31 09/16/17 12:31 09/16/17 12:31 09/16/17 12:31 09/16/17 12:31 - Laboratory Result Diagrams: 09/16/17 11:10 09/16/17 11:10 Laboratory results interpreted by me: 09/16/17 09/16/17 10:00 11:10 Glucose 150 H Urine Glucose (UA) 50 H Doctor's Discharge - Discharge Clinical Impression: Flank pain, Nephrolithiasis Condition: Stable Disposition: HOME, SELF-CARE Instructions: Anti-Inflammatory Medication ([facility]), Flank Pain ([facility]), Oral Narcotic Medication ([facility]), Toradol Injection ([facility]) Additional Instructions: REST, AVOID PAINFUL ACTIVITY. TAKE IBUPROFEN OR NAPROXEN TO REDUCE INFLAMMATION. YOU MAY TAKE NORCO IF NEEDED FOR PAIN CONTROL. FOLLOW UP IF NOT IMPROVED IN 2-3 DAYS. Prescriptions: Hydrocodone/Acetaminophen [[place] 5-325 mg Tablet] 1 tab PO Q4HP PRN #14 tablet PRN Reason: For Pain
== END 2017-09-16 12:35 | disposition home or self-care (01) ==
LOC: ER 07:06
DX: N20.0 Calculus of kidney (principal); I10 Essential (primary) hypertension; E11.9 Type 2 diabetes mellitus without complications; Z87.442 Personal history of urinary calculi
CPT/HCPCS: 99284; 36415; 87086; 85025; 80053; 81001; 76380; J1885

== ENCOUNTER 2018-02-24 17:10 | Emergency (ER) | payer SELFPAY ==
[2018-02-24 17:59] LABS: APPEARANCE,URINE CLEAR; BILIRUBIN,URINE NEGATIVE (NEGATIVE); COLOR,URINE YELLOW; GLUCOSE, URINE NEGATIVE (NEGATIVE); KETONES,URINE NEGATIVE (NEGATIVE); LEUKOCYTE ESTERASE,URINE NEGATIVE (NEGATIVE); NITRITE,URINE NEGATIVE (NEGATIVE); PROTEIN,URINE 30 mg/dL (NEGATIVE); URINE SPECIFIC GRAVITY 1.023
--- NOTE | 2018-02-24 18:11 | ER Document Report ---
ED Medical Screen (RME) - General Chief Complaint: Abdominal Pain Stated Complaint: ABDOMINAL PAIN Time Seen by Provider: 02/24/18 18:02 Mode of Arrival: Ambulatory Information source: Patient, [facility] Records Notes: This 47-year-old male patient comes emergency room complaining of right upper quadrant abdominal pain for the last 4 days. It started Wednesday evening, got better and he is at sleep at night. He worked following day at about noon began having the discomfort again. He indicates the pain is in the right paracentral near epigastric region. He does not notice if it is provoked by anything that he eats. He describes it mostly as a burning type discomfort. TRAVEL OUTSIDE OF THE [place] IN LAST 30 DAYS: No - Related Data Allergies/Adverse Reactions: neomycin Allergy (Verified 02/24/18 17:10) Past Medical History - General Information source: Patient, [facility] Records - Social History Cigarette use (# per day): Yes - 1/2 PPD Chew tobacco use (# tins/day): No Frequency of alcohol use: Occasional Drug Abuse: None Family history: Reviewed & Not Pertinent - Past Medical History Cardiac Medical History: Reports: Hx Hypertension Pulmonary Medical History: Reports: None EENT Medical History: Reports: None Neurological Medical History: Reports: None Endocrine Medical History: Reports: Hx Diabetes Mellitus Type 2 Renal/ Medical History: Reports: Hx Kidney Stones GI Medical History: Reports: None Musculoskeltal Medical History: Reports Hx Arthritis, Reports Hx Musculoskeletal Deformity, Reports Hx Musculoskeletal Trauma Psychiatric Medical History: Reports: None Traumatic Medical History: Reports: Hx Fractures Past Surgical History: Reports: Hx Inguinal Hernia - Right inguinal hernia, Hx Kidney (Renal Surgery) - 6 sonic lithotripsies, 1 laser lithotrypsy - Immunizations Immunizations up to date: Yes Physical Exam - Vital signs Vitals: Temp Pulse Resp BP Pulse Ox 99.2 F 90 18 175/103 H 96 02/24/18 17:24 02/24/18 17:24 02/24/18 17:24 02/24/18 17:24 02/24/18 17:24 Course - Vital Signs Vital signs: Temp Pulse Resp BP Pulse Ox 99.2 F 90 18 175/103 H 96 02/24/18 17:24 02/24/18 17:24 02/24/18 17:24 02/24/18 17:24 02/24/18 17:24 - Laboratory Laboratory results interpreted by me: 02/24/18 17:22 Urine Protein 30 H Urine Blood SMALL H Urine Urobilinogen 2.0 H Urine Ascorbic Acid 20 H
[2018-02-24 18:38] LABS: ABSOLUTE BASOPHILS # (AUTO) 0.1 10^3/uL (0.0-0.2); ABSOLUTE EOSINOPHILS # (AUTO) 0.4 10^3/uL (0.0-0.6); ABSOLUTE LYMPHOCYTES (AUTO) 3.3 10^3/uL (0.5-4.7); ABSOLUTE MONOCYTES (AUTO) 0.6 10^3/uL (0.1-1.4); ABSOLUTE NEUT (AUTO) 5.3 10^3/uL (1.7-8.2); BASOPHILS % (AUTO) 0.8 % (0-2); EOSINOPHILS % (AUTO) 3.6 % (0-6); HEMATOCRIT 46.4 % (37.9-51.0); HEMOGLOBIN 16.2 g/dL (13.5-17.0); LYMPHOCYTES % (AUTO) 34.6 % (13-45); MEAN CORPUSCULAR HEMOGLOBIN 32.5 pg (27.0-33.4); MEAN CORPUSCULAR VOLUME 93 fl (80-97); PLATELET COUNT 213 10^3/uL (150-450); RED CELL DISTRIBUTION WIDTH 13.2 % (11.5-14.0); TOTAL CELLS COUNTED % (AUTO) 100 %; WHITE BLOOD COUNT 9.7 10^3/uL (4.0-10.5)
[2018-02-24 18:45] LABS: ALANINE AMINOTRANSFERASE 37 U/L (21-72); ALBUMIN 4.4 g/dL (3.5-5.0); ALKALINE PHOSPHATASE 67 U/L (38-126); ANION GAP 14 (5-19); ASPARTATE AMINO TRANSFERASE 28 U/L (17-59); BILIRUBIN,DIRECT 0.4 mg/dL (0.0-0.4); BILIRUBIN,TOTAL 0.5 mg/dL (0.2-1.3); BLOOD UREA NITROGEN 17 mg/dL (7-20); CALCIUM 9.5 mg/dL (8.4-10.2); CARBON DIOXIDE 26 mmol/L (22-30); CHLORIDE 107 mmol/L (98-107); GLUCOSE 99 mg/dL (75-110); LIPASE 62.9 U/L (23-300); POTASSIUM 3.7 mmol/L (3.6-5.0); SODIUM 146.6 mmol/L (137-145); TOTAL PROTEIN 7.3 g/dL (6.3-8.2)
--- NOTE | 2018-02-24 19:42 | ER Document Report ---
ED General - General Chief Complaint: Abdominal Pain Stated Complaint: ABDOMINAL PAIN Time Seen by Provider: 02/24/18 18:02 Mode of Arrival: Ambulatory Information source: Patient Notes: Patient is a 47-year-old male who presents with chief complaint of right upper quadrant pain. Patient reports that this pain started Wednesday night and has associated nausea without vomiting or diarrhea. Patient denies any fevers. Patient reports that the pain is intermittent and feels like a burning pain, patient unsure if anything makes it better or worse. Patient denies any history of abdominal surgeries. Patient reports that he has a history of insulin-dependent diabetes, hypertension and kidney stones. Patient reports he has been out of his medications for some time now. TRAVEL OUTSIDE OF THE [place] IN LAST 30 DAYS: No - Related Data Allergies/Adverse Reactions: neomycin Allergy (Verified 02/24/18 17:10) Past Medical History - General Information source: Patient, [facility] Records - Social History Smoking Status: Current Every Day Smoker Cigarette use (# per day): Yes - 1/2 PPD Chew tobacco use (# tins/day): No Frequency of alcohol use: Occasional Drug Abuse: None Family History: DM, Hyperlipidemia, Hypertension, Malignancy. denies: Arthritis , CAD, COPD, CVA, Thyroid Disfunction Patient has suicidal ideation: No Patient has homicidal ideation: No - Past Medical History Cardiac Medical History: Reports: Hx Hypertension Pulmonary Medical History: Reports: None EENT Medical History: Reports: None Neurological Medical History: Reports: None Endocrine Medical History: Reports: Hx Diabetes Mellitus Type 2 Renal/ Medical History: Reports: Hx Kidney Stones. Denies: Hx Peritoneal Dialysis GI Medical History: Reports: None Musculoskeltal Medical History: Reports Hx Arthritis, Reports Hx Musculoskeletal Deformity, Reports Hx Musculoskeletal Trauma Psychiatric Medical History: Reports: None Traumatic Medical History: Reports: Hx Fractures Past Surgical History: Reports: Hx Inguinal Hernia - Right inguinal hernia, Hx Kidney (Renal Surgery) - 6 sonic lithotripsies, 1 laser lithotrypsy - Immunizations Immunizations up to date: Yes Review of Systems - Review of Systems Constitutional: No symptoms reported EENT: No symptoms reported Cardiovascular: No symptoms reported Respiratory: No symptoms reported Gastrointestinal: See HPI Genitourinary: No symptoms reported Male Genitourinary: No symptoms reported Musculoskeletal: No symptoms reported Skin: No symptoms reported Hematologic/Lymphatic: No symptoms reported Neurological/Psychological: No symptoms reported Physical Exam - Vital signs Vitals: Temp Pulse Resp BP Pulse Ox 99.2 F 90 18 175/103 H 96 02/24/18 17:24 02/24/18 17:24 02/24/18 17:24 02/24/18 17:24 02/24/18 17:24 - Notes Notes: PHYSICAL EXAMINATION: GENERAL: Well-appearing, well-nourished and in no acute distress. HEAD: Atraumatic, normocephalic. EYES: Pupils equal round and reactive to light, extraocular movements intact, sclera anicteric, conjunctiva are normal. ENT: Nares patent, oropharynx clear without exudates. Moist mucous membranes. NECK: Normal range of motion, supple without lymphadenopathy LUNGS: Breath sounds clear to auscultation bilaterally and equal. No wheezes rales or rhonchi. HEART: Regular rate and rhythm without murmurs ABDOMEN: Soft, nondistended abdomen. Tenderness to palpation to right upper quadrant, positive Grey sign. No guarding, no rebound. No masses appreciated. Musculoskeletal: Normal range of motion, no pitting or edema. No cyanosis. NEUROLOGICAL: Cranial nerves grossly intact. Normal speech, normal gait. Normal sensory, motor exams PSYCH: Normal mood, normal affect. SKIN: Warm, Dry, normal turgor, no rashes or lesions noted. Course - Re-evaluation Re-evalutation: Patient is a 47-year-old male presenting with chief complaint of abdominal pain to the right upper quadrant for the last 4 days with associated nausea. Patient denies any vomiting, diarrhea or fevers. Patient was initially seen by provider in triage, CBC is unremarkable, comprehensive metabolic panel and lipase are both normal, urinalysis is unremarkable. Right upper quadrant ultrasound reveals a normal gallbladder and a fatty liver. Patient blood pressure medication will be refilled. Patient given information on primary care providers in the area. Patient told he may need a HIDA scan if he continues to have symptoms. Patient understands ED return precautions. - Vital Signs Vital signs: Temp Pulse Resp BP Pulse Ox 99.2 F 79 18 164/109 H 98 02/24/18 17:24 02/24/18 19:47 02/24/18 20:31 02/24/18 20:31 02/24/18 20:31 - Laboratory Result Diagrams: 02/24/18 18:20 02/24/18 18:20 Laboratory results interpreted by me: 02/24/18 02/24/18 02/24/18 17:22 18:20 18:20 Sodium 146.6 H Hemoglobin A1c % 6.9 H Urine Protein 30 H Urine Blood SMALL H Urine Urobilinogen 2.0 H Urine Ascorbic Acid 20 H Discharge - Discharge Clinical Impression: Right upper quadrant abdominal pain Disposition: HOME, SELF-CARE Additional Instructions: Abdominal Pain There are many causes of abdominal pain. Pain can mean a serious problem requiring surgery (such as appendicitis). It can also be an innocent problem that goes away on its own (such as a viral infection). Often, time must pass to determine the cause of pain. The physician does not feel that hospitalization is necessary, at present. Things may change within the next 24 hours. Call the doctor or come back for re- examination if any problems occur, such as: (1) Pain that becomes more severe, steady, or becomes concentrated in one specific area. Also, pain that is more severe with movement or coughing. (2) Vomiting that persists or becomes more frequent. (3) Blood in the vomitus, urine, or bowel movements. Blood in the stool may have a tarry or black appearance. (4) Shaking chills or fever greater than 100 degrees F. (5) The abdomen becomes more distended or swollen. (6) Bowel movements cease. (7) Failure to improve as expected. You have been seen in the Emergency Department (ED) for abdominal pain. Your evaluation did not identify a clear cause of your symptoms but was generally reassuring. Your laboratory workup as well as your gallbladder ultrasound was normal. You may need to follow-up with your primary care provider to have a HIDA scan done. Please follow up with your doctor as soon as possible regarding today's emergent visit and the symptoms that are bothering you. Return to the ED if your abdominal pain worsens or fails to improve, you develop bloody vomiting, bloody diarrhea, you are unable to tolerate fluids due to vomiting, fever greater than 101, or other symptoms that concern you. Prescriptions: Lisinopril 40 mg PO QHS #30 tablet Ondansetron HCl [Zofran] 4 mg PO Q4H PRN #15 tablet PRN Reason: Forms: Elevated Blood Pressure, Return to Work Referrals: [facility] [Provider Group] - Follow up as needed [facility] [Provider Group] - Follow up as needed
--- NOTE | 2018-02-24 19:44 | RADIOLOGY REPORT (SQ) ---
EXAM DESCRIPTION: U/S ABDOMEN LIMITED W/O DOP COMPLETED DATE/TIME: 02/24/2018 7:19 pm REASON FOR STUDY: RUQ abd pain COMPARISON: None. TECHNIQUE: Dynamic and static grayscale images acquired of the right upper quadrant and recorded on PACS. Additional selected color Doppler and spectral images recorded. LIMITATIONS: Study limited due to acoustical interference from fat or from air in the bowel. FINDINGS: PANCREAS: Parts or all of the pancreas poorly seen secondary to acoustical interference fr om fat or from air in the bowel. LIVER: Echotexture is coarse with increased echogenicity consistent with fatty infiltration. No mass es. LIVER VASCULATURE: Normal directional flow of the main portal vein and hepatic veins. GALLBLADDER: No stones. Normal wall thickness. No pericholecystic fluid. ULTRASOUND-DETECTED BAXTER'S SIGN: Negative. INTRAHEPATIC DUCTS AND COMMON DUCT: CBD and intrahepatic ducts normal caliber. No filling defects. INFERIOR VENA CAVA: Normal flow. AORTA: No aneurysm. RIGHT KIDNEY: Normal size. Normal echogenicity. No solid or suspicious masses. No hydronephros is. No calcifications. PERITONEAL CAVITY AND RIGHT PLEURAL SPACE: No ascites or effusions. OTHER: No other significant finding. IMPRESSION: FATTY LIVER. PANCREAS PARTIALLY OR COMPLETELY OBSCURED. Normal gallbladder. TECHNICAL DOCUMENTATION: JOB ID: [id number] 2010 [employer]- All Rights Reserved Reading location - IP/workstation name: [email or web address]
[2018-02-24] MEDS ORDERED: LISINOPRIL 10 MG TABLET PO ONE (20:34)
[2018-02-24 20:48] VITALS: BP 164/109
[2018-02-24] MEDS ORDERED: ONDANSETRON ODT 4 MG TAB (6 TAB/ER DISP) PO PRN (20:50)
== END 2018-02-24 21:08 | disposition home or self-care (01) ==
LOC: ER 17:10
DX: R10.11 Right upper quadrant pain (principal); R11.0 Nausea; E11.9 Type 2 diabetes mellitus without complications; Z79.4 Long term (current) use of insulin; I10 Essential (primary) hypertension; F17.210 Nicotine dependence, cigarettes, uncomplicated
CPT/HCPCS: 36415; 76705; 80053; 81001; 83036; 83690; 85025; 99284